=== PATIENT | female | born 1960 | race Caucasian/White ===

== ENCOUNTER 2025-06-14 15:00 | Emergency (ER) | payer BC, SELFPAY ==
--- NOTE | ~2025-06-14 | XR_ITS ---
XR ankle RT min 3V, XR foot RT min 3V 06/14/2025 15:40 Indication: Status post fall with swelling. Procedure: 3 views right ankle 3 views right foot Comparison: No prior studies for comparison. Findings: Comminuted Intra-articular fracture of the calcaneus with extension to the subtalar joint. Ankle mortise intact. Mild lateral soft tissue swelling. No foreign bodies. Impression: 1: Comminuted intra-articular fracture of the calcaneus with extension to the subtalar joint. Reviewed, dictated and finalized at location O. HAND ENGINEER Impression: 1: Comminuted intra-articular fracture of the calcaneus with extension to the s ubtalar joint. Impression: 1: Comminuted intra-articular fracture of the calcaneus with extension to the s ubtalar joint.
--- NOTE | ~2025-06-14 | CT_ITS ---
EXAMINATION: CT cervical spine wo con DATE: 06/14/2025 19:40 INDICATION: Neck pain after fall TECHNIQUE: Computed tomography (CT) of the cervical spine was performed without intravenous contrast. The dose-length product was 277 mGy-cm. COMPARISON: None FINDINGS: Straightening of cervical lordosis. There is disc narrowing at C5-6 and C6-7. Craniovertebral junction is normal odontoid process is normal. No evidence for perched facet. Spinous processes are normal. There is uncinate hypertrophy at C5-6 and C6-7. Lung apices are normal. No acute fracture or traumatic malalignment. IMPRESSION: 1. No acute abnormality of the cervical spine. Reviewed, dictated and finalized at location O. ICATIONS PROCESSOR
--- NOTE | ~2025-06-14 | CT_ITS ---
EXAMINATION: CT BRAIN W/O DATE: 06/14/2025 19:36 INDICATION: Status post fall. Head injury. TECHNIQUE: Computed tomography (CT) of the head was performed without intravenous contrast. The dose-length product was 605.33 mGy-cm. Automated exposure control and iterative reconstruction technique were employed. COMPARISON: No prior studies for comparison. FINDINGS: Normal brain parenchymal volume for age. Normal richardson-white differentiation. No acute intracranial hemorrhage, infarction, mass or mass effect. No ventriculomegaly or midline shift. Midline sagittal images demonstrate a normal corpus callosum, craniovertebral junction and sella turcica. Basilar cisterns are patent. Paranasal sinuses and mastoids are pneumatized. No depressed skull fractures. IMPRESSION: 1. No acute intracranial abnormality. Reviewed, dictated and finalized at location O. SFORMER STOCK CLERK
--- NOTE | ~2025-06-14 | CT_ITS ---
EXAMINATION: CT foot RT wo con DATE: 06/14/2025 21:47 INDICATION: Calcaneal fracture TECHNIQUE: Computed tomography (CT) of the right foot was performed without intravenous contrast. The dose-length product was 474.18 mGy-cm. Automated exposure control and iterative reconstruction technique were employed. COMPARISON: X-ray dated 06/14/2025 FINDINGS: There is a depressed type comminuted intra-articular fracture with decreased Boehler's angle. The distal tibia and fibula are unremarkable. The talus is within normal limits. There is a small bone island in the talus. No other fracture or traumatic malalignment. Moderate diffuse soft tissue swelling. IMPRESSION: 1. Depressed type comminuted intra-articular fracture of the calcaneus with decreased Boehler's angle. Reviewed, dictated and finalized at location O. NTION SERGEANT IMPRESSION: 1. Depressed type comminuted intra-articular fracture of the calcaneus with dec reased Boehler's angle.
--- NOTE | ~2025-06-14 | CT_ITS ---
EXAMINATION: CT chest abdomen pelvis w con DATE: 06/14/2025 20:04 RUG RENOVATOR INDICATION: Status post fall. TECHNIQUE: Computed tomography (CT) of the chest, abdomen, and pelvis was performed with intravenous contrast. The dose-length product was 775.92 mGy-cm. Automated exposure control and iterative reconstruction technique were employed. COMPARISON: None FINDINGS: CHEST CT: No significant pleural or pericardial effusion. No significant vascular abnormality. No thoracic lymphadenopathy. No focal airspace consolidation. No endobronchial lesions. No pneumothorax. There is 2 mm right upper lobe nodule, likely benign. There is a calcified granuloma in the left upper lobe. No focal airspace consolidation. ABDOMEN/PELVIS CT: Fatty infiltration of the liver. The spleen, pancreas, adrenal glands are unremarkable. There are small subcentimeter hypodensities of the kidneys, most likely benign cysts. Gallbladder is present. Nonobstructive bowel gas pattern. Fatty infiltration of the liver. The bowel pattern is nonobstructive. No significant vascular abnormality. No lymphadenopathy. Gallbladder is present. No acute osseous abnormality. IMPRESSION: 1. No acute abnormality of the chest, abdomen or pelvis. Reviewed, dictated and finalized at location O. RENOVATOR
--- NOTE | ~2025-06-14 | XR_ITS ---
XR pelvis 1-2V 06/14/2025 15:40 INDICATION: Status post fall. Pelvic pain. PROCEDURE: AP pelvis COMPARISON: No prior studies for comparison. FINDINGS: Fracture, dislocation or subluxation is not identified. The soft tissues appear within normal limits. No foreign bodies are identified. Study limited due to exclusion of the iliac crests. IMPRESSION: 1: NO ACUTE BONE OR JOINT ABNORMALITY IDENTIFIED. Reviewed, dictated and finalized at location O. CH TRANSLATOR
--- NOTE | ~2025-06-14 | XR_ITS ---
XR femur RT min 2V 06/14/2025 15:40 INDICATION: Right leg pain PROCEDURE: 2 views right femur COMPARISON: No prior studies for comparison. FINDINGS: Fracture, dislocation or subluxation is not identified. No significant soft tissue abnormality. The soft tissues appear within normal limits. No foreign bodies are identified. IMPRESSION: 1: NO ACUTE BONE OR JOINT ABNORMALITY IDENTIFIED. Reviewed, dictated and finalized at location O. RTMENT SUPERVISOR
--- OUTSIDE RECORDS SUMMARY | 2025-06-14 15:02 | XMS_ITS | Encounter Summary ---
Author Organization [facility] Address [address] [place] [address] Care Team Providers Care Furniture Removalist'S Assistant Name Role Phone Unavailable Primary Care Provider Unavailabl e Encounter Details Date Type Department Care Team (Late st Contact Info) Description 08/07/2020 Lab Requisition [facility] DermPath Lab [address], [place] [address] Fidelina Cordon DO [address] [facility] 3 [place] [address] Social History Tobacco Use Types Packs/Day Years Used Date Smoking Tobacco: Never Assessed Comments Unknown Sex and Gender Information Value Date Recorded Sex Assigned at Not on file Legal Sex Female 5:49 AM SECURITY DEVELOPER Gender Identity Not on file Sexual Orientation Not on file documented as of this encounter Plan of Treatment Not on file documented as of this encounter Procedures Procedure Name Priority Date/Time Associated Diagnosis Comments DERMATOPATHOLOGY Routine 08/06/2020 12:0 0 AM SECURITY DEVELOPER documented in this encounter Results * DERMATOPATHOLOGY (08/06/2020 12:00 AM SECURITY DEVELOPER) Case Report Dermatopathology Report Case: [id number] Authorizing Provider: Fidelina Cordon DO Collected: 08/06/2020 12:00 AM Ordering Location: [facility] Care DermPath Lab Received: 08/07/2020 11:44 AM Pathologist: Karthik Jiménez MD Specimen: Skin, right calf 11:53 AM SECURITY DEVELOPER DERMATOPATHOLOGY LABORATORY Final Diagnosis Specimen A. 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 11:53 AM [facility] DERMATOPATHOLOGY LABORATORY Gross Description Specimen A: Received is one formalin filled container labeled with the patient's name and designated right calf. The specimen consists of a shave biopsy measuring [id number]. Jar 0. 11:53 AM [facility] DERMATOPATHOLOGY LABORATORY Microscopic Description Specimen A. SKIN, right calf: This is a benign keratosis showing acanthosis with acantholysis in the lower layers of the epidermis. 11:53 AM [facility] DERMATOPATHOLOGY LABORATORY Disclaimer An external and internal positive and negative controls are appropriate for the histochemical, immunohistochemical and immunofluorescence stain(s) in this case (if any), except where stated explicitly. The performance characteristics of the stain(s) cited in this report were developed and its performance characteristic determined by the Dermatopathology Laboratory at [facility], directed by Dr. Lisy Jiménez. These tests need not be, and therefore are not, approved by the [place] Food and Drug Administration. The tests are used for clinical purposes. Billing Codes Specimen Charges Stain Charges 88507 1 11:53 AM [facility] DERMATOPATHOLOGY LABORATORY Embedded Images 11:53 AM [facility] DERMATOPATHOLOGY LABORATORY Pathology/Cytolog y TISSUE SPECIMEN FROM SKIN / Unknown 08/06/2020 08/07/2020 11:44 AM SECURITY DEVELOPER us Fidelina Cordon DO LAB - PATHOLOGY/CYTOLOGY ORDERABLES Final Result DERMATOPATHOLOGY LABORATORY [facility] - Department of Dermatology [address], [address] Floor [address] [phone] documented in this encounter Visit Diagnoses Not on filedocumented in this encounter
--- OUTSIDE RECORDS SUMMARY | 2025-06-14 15:02 | XMS_ITS | Clinical Summary ---
Author Organization [facility] Address [address] [place] [address] Care Team Providers Care Shoe Lining Fitter Name Role Phone Unavailable Primary Care Provider Unavailabl e Source Comments [facility],non-owned Affiliates and Associated Physician Practices is amultiple site organization consisting of ambulatory clinics and hospital sitesin [place], [place], [place] and [place]. This disclosure is being madepursuant to the Care Everywhere program and may not contain all information available regarding this patient. Last updated 18.[facility] Social History Tobacco Use Types Packs/Day Years Used Date Smoking Tobacco: Never Assessed Comments Unknown Sex and Gender Information Value Date Recorded Sex Assigned at Not on file Legal Sex Female 5:49 AM DIRECTOR TRADING Gender Identity Not on file Sexual Orientation Not on file Plan of Treatment Health Maintenance Due Date Last Done Comments COLOGUARD (AGES 45-75) - COL ON CA SCREENING 1961 COLON MONITORING 1961 COLONOSCOPY - COLON CA SCREENING 1961 CT COLONOGRAPHY - COLON CA SCREENING 1961 Colorectal Cancer Screening 1961 FIT - COLON CA SCREENING 1961 FLEX SIG - COLON CA SCREENING 1961 LIPID TESTING 1961 MAMMOGRAM 1961 HIV SCREENING 1976 HEPATITIS C SCREENING 10/15/1979 DTAP/TDAP/TD VACCINES (1 - Tdap) 1980 PNEUMOCOCCAL VACCINE 50+ (1 of 1 - PCV) 10/20/2011 ZOSTER VACCINE (1 of 2) 10/20/2011 DEPRESSION SCREENING 06/20/2024 COVID-19 VACCINE (1 - 2024-2 6 season) 2025 INFLUENZA VACCINE (#1) 2025 Respiratory Syncytial Virus (RSV) Vaccine Pt: or over 60 yrs (1 - 1-dose 75+ series) 2036 HEPATITIS B VACCINE Aged Out No longe r eligible based on patient's age to complete this topic HIB VACCINE Aged Out No longer eligi ble based on patient's age to complete this topic HPV VACCINE Aged Out No longer eligi ble based on patient's age to complete this topic MENINGOCOCCAL (Group B) VACC INE SHARED DECISION-MAKING Aged Out No longer eligibl e based on patient's age to complete this topic MENINGOCOCCAL GROUPS A/C/Y/W VACCINE Aged Out No longer eligible b ased on patient's age to complete this topic Insurance
--- OUTSIDE RECORDS SUMMARY | 2025-06-14 15:02 | XMS_ITS | Clinical Summary ---
Author Organization [facility] Address [address] [place] [address] Care Team Providers Care Telephone Service Representative Name Role Phone Lashell Campos MD Primary Care Provi joel Allergies No known active allergies Medications albuterol HFA (PROVENTIL HFA,VENTOLIN HFA,PROAIR HFA) 90 mcg/actuation inhalerIndicat ions:Chronic cough Inhale 2 puffs every 6 (six) hours as needed (cough) 1 each 4 03/14/20 25 026 Active inhalational spacing device (Aerochamber MV) spacerIndicati ons:Chronic cough Please use with albuterol every 6 hours as needed 1 each 03/14/20 25 Active alendronate (FOSAMAX) 10 mg tablet TAKE 1 TABLET (10 MG TOTAL) BY MOUTH DAILY BEFORE BREAKFAST TAKE IN THE MORNING WITH A FULL GLASS OF WATER, ON AN EMPTY STOMACH, AND DO NOT TAKE ANYTHING ELSE BY MOUTH OR LIE DOWN FOR THE NEXT 30 MIN. 90 tablet 3 06/10/20 25 Active alendronate (FOSAMAX) 10 mg tablet Take 1 tablet (10 mg total) by mouth daily before breakfast Take in the morning with a full glass of water, on an empty stomach, and do not take anything else by mouth or lie down for the next 30 min. 90 tablet 03/06/20 25 025 Discontinued Active Problems Problem Noted Date Diagnosed Date Well adult exam 03/14/2025 Overview (03/14/2025): Reviewed working on a heart healthy diet and activity to her level. Health Maintenance: Last PAP: s/p hysterectomy Last mammogram:04/12- Negative Last DEXA:07/13- osteoporosis Last colonoscopy: 12/10- repeat in 5 years Last Tdap: encouraged Last Shingrix:encouraged Last Flu: encouraged Last COVID: encouraged Test results: if you have not received communication about test results within 7 days of the test being performed, please contact the office. I strongly encourage myChart sign ups. It can facilitate communication flow. Please contact the office for instructions on signing up. Assessment & Plan (03/14/2025 8:46 AM CDT): Reviewed working on a heart healthy diet and activity to her level. Health Maintenance: Last PAP: s/p hysterectomy Last mammogram:04/12- Negative Last DEXA:07/13- osteoporosis Last colonoscopy: 12/10- repeat in 5 years Last Tdap: encouraged Last Shingrix:encouraged Last Flu: encouraged Last COVID: encouraged Test results: if you have not received communication about test results within 7 days of the test being performed, please contact the office. I strongly encourage myChart sign ups. It can facilitate communication flow. Please contact the office for instructions on signing up. Age-related osteoporosis wit hout current pathological fracture 03/14/2025 Assessment & Plan (03/14/2025 8:46 AM CDT): History of endometrial cancer 03/14/2025 Assessment & Plan (03/14/2025 8:46 AM CDT): Overweight (BMI 25.0-29.9) 12/14/2023 Assessment & Plan (03/14/2025 8:46 AM CDT): Chronic, slight progression BMI Follow-up includes: education provided. Assessment & Plan (12/14/2023 1:16 PM CDT): BMI Follow-up includes: education provided. Mediastinal lymphadenopathy 04/29/2016 Assessment & Plan (03/14/2025 8:46 AM CDT): Orders: CT Chest WO Contrast; Future Encounters Date Type Department Care Team Description 03/22/2025 Results Follow-Up [facility] Family Medicine [address] [phone] Lashell Campos MD CBC with auto differential, Comprehensive metabolic panel, Lipid panel, Thyroid Function [place] from Last 3 Months Immunizations Immunization Administration Dates Next Due Influenza, Unspecified 02/18/2025(Deferr ed: Patient decision),03/20/2024(Deferred: Patient decision),03/20/2023(Deferred: Patient Refused),03/20/2022(Deferred: Patient decision),03/20/2021(Deferred: Patient decision) Tdap 03/14/2025 Surgical History Surgery Date Site/Laterality Comments TOTAL ABDOMINAL HYSTERECTOMY age 46 LASIK 1998 CYSTECTOMY ovarian Medical History Medical History Date Comments Malignant neoplasm of uterus (HCC) Cancer, uterine Endometrial cancer 03/2007 Osteoporosis 06/29/23 Family History Medical History Relation Name Comments Breast cancer Father's Sister Breast cancer Mother Ely Holbrook Cancer Mother Ely Holbrook Breast cancer Sister 1 Endometrial cancer Sister 1 Uterine cancer Sister 1 Cancer, uteri ne; Cancer Sister 2 Marisol Holbrook Ovarian cancer Neg Hx Thyroid cancer Neg Hx Relation Name Status Comments Father Father's Sister Mother Ely Holbrook Other Sister 1 Sister 2 Marisol Holbrook Social History Tobacco Use Types Packs/Day Years Used Date Smoking Tobacco: Never Smokeless Tobacco: Never Tobacco Cessation:Counseling Given: Not Answered Alcohol Use Standard Drinks/Week Comments Yes 0 (1 standard drink = 0.6 oz pur e alcohol) PHQ-2 Answer Date Recorded PHQ-2 Total Score (If total score is 3 or more points, staff should administer the PHQ-9) 0 03/14/2025 PHQ-9 Answer Date Recorded PHQ-9 Total Score 0 03/14/2025 AUDIT-C Answer Date Recorded Q1: How often do you have a drink containing alc ohol? Monthly or less 03/14/2025 Q2: How many drinks containi ng alcohol do you have on a typical day when you are drinking? 1 or 2 03/14/2025 Q3: How often do you have si x or more drinks on one occasion? Never 03/14/2025 Comments No Sex and Gender Information Value Date Recorded Sex Assigned at Not on file Legal Sex Female 4:16 AM CRITICAL CARE SPECIALIST Gender Identity Not on file Sexual Orientation Not on file Obstetrics History Para Term AB IAB SAB Ectopic Multiple Livin g Live Births 3 3 3 3 3 Date Outcome GA Total Labor Labor/2nd/3rd Weight Sex Type Anes PTL Zeinab A1 A5 Name Clin Term Vag-S pont Living Term Vag-S pont Living Term Vag-S pont Living Last Filed Vital Signs Vital Sign Reading Time Taken Comments Blood Pressure 120/70 03/14/2025 8:16 AM CDT Pulse 58 03/14/2025 8:16 AM CDT Temperature 36.1 C (97 F) 03/14/2025 8:16 AM CDT Respiratory Rate 16 03/14/2025 8:16 AM CDT Oxygen Saturation 98% 03/14/2025 8:16 AM CDT Inhaled Oxygen Concentration - - Weight 81.3 kg (179 lb 3.2 oz) 03/14/2025 8:16 A M CDT Height 168.9 cm (5' 6.5) 03/14/2025 8:16 AM CDT Body Mass Index 28.49 03/14/2025 8:16 AM CDT Plan of Treatment Health Maintenance Due Date Last Done Comments Hepatitis B Screening 10/20/1979 Zoster Vaccine (1 of 2) 10/20/2011 Covid-19 Vaccine (3 - season) 2025 09/23/2020, 08/31/2020 Influenza Vaccine (#1) 2025 Breast Cancer Screening-Mammogram 04/18/2025 04/18/2024, 01/20/2023, 05/03/2019 Depression Screening 03/14/2026 03/14/2025, 03/14/2025, 12/14/2023, Additional history exists Regular Well Visit/Exam 18-64 03/14/2026 03/14/2025, 02/15/2023 Colon Cancer Screening-Colonoscopy 12/01/2027 11/30/2022 DTaP/Tdap/Td Vaccine (2 - Td or Tdap) 03/14/2035 03/14/2025 Hepatitis C Screening Completed 11/29/2022 Colon Cancer Screening-CT Colonography Discontinued 11/30/2022 Colon Cancer Screening-DNA Stool Discontinued 11/30/2022 Colon Cancer Screening-FIT Discontinued 11/30/2022 Colon Cancer Screening-Sigmoidoscopy Discontinued 11/30/2022 Pneumococcal vaccine <65 Aged Out No longer eligible based on patient's age to complete this topic Procedures Procedure Name Priority Date/Time Associated Diagnosis Comments THYROID FUNCTION CASCADE Routine 03/19/2025 12:42 PM CDT Screening for thyroid disorder LIPID PANEL Routine 03/19/2025 12:42 PM CDT Screening, lipid COMPREHENSIVE METABOLIC PANEL Routine 03/19/2025 12:42 PM CDT Screening for diabetes mellitus CBC WITH AUTO DIFFERENTIAL Routine 03/19/2025 12:42 PM CDT Screening for deficiency anemia SCREENING MAMMOGRAM BILATERAL W OCTAVIANO Schedule Routine, Read Routine (OP Routine) 04/18/2024 2:30 PM CDT Screening mammogram, encounter for COLONOSCOPY Routine 11/30/2022 HEPATITIS C ANTIBODY Routine 11/29/2022 8:45 AM CDT Need for hepatitis C screening test from Last 3 Months or Most Recently Relevant to Health Maintenance Results * Thyroid Function [place] (03/19/2025 12:42 PM CDT) TSH 4.44 0.40 - 4.50 mIU/L [facility] Blood 03/19/2025 12:4 2 PM CDT 03/19/2025 12:44 PM CDT Narrative [facility] - 03/20/2025 1:33 AM CDT FASTING:YES FASTING: YES us Lashell Campos MD LAB BLOOD ORDERABLE S Final Result [facility] [address] [place] [address] * CBC with auto differential (03/19/2025 12:42 PM CDT) WBC 5.5 3.8 - 10.8 Thousand/u L [facility] RBC, POC 4.56 3.80 - 5.10 Million/uL [facility] Hgb 13.6 11.7 - 15.5 g/dL [facility] Hct 41.7 35.0 - 45.0 % [facility] MCV 91.4 80.0 - 100.0 fL [facility] MCH 29.8 27.0 - 33.0 pg [facility] MCHC 32.6 32.0 - 36.0 g/dL [facility] Comment: For adults, a slight decrease in the calculated MCHC value (in the range of 30 to 32 g/dL) is most likely not clinically significant; however, it should be interpreted with caution in correlation with other red cell parameters and the patient's clinical condition. Rdw 12.6 11.0 - 15.0 % [facility] Platelets 215 140 - 400 Thousand/u L [facility] MPV 11.1 7.5 - 12.5 fL [facility] Neutrophils, abs 3,674 1,500 - 7,800 cells/uL [facility] Lymphocytes, abs 1,348 850 - 3,900 cells/uL [facility] Monocyte abs 341 200 - 950 cells/uL [facility] Eosinophils, abs 88 15 - 500 cells/uL [facility] Basophils, abs 50 0 - 200 cells/uL [facility] Neutrophils 66.8 % [facility] Lymphocyte pct 24.5 % [facility] Monocytes 6.2 % [facility] Eosinophils 1.6 % [facility] Basophils 0.9 % [facility] Blood 03/19/2025 12:4 2 PM CDT 03/19/2025 12:44 PM CDT Narrative [facility] - 03/20/2025 1:33 AM CDT FASTING:YES FASTING: YES us Lashell Campos MD LAB BLOOD ORDERABLE S Final Result [facility] [address] [place] [address] * (ABNORMAL) Lipid panel (03/19/2025 12:42 PM CDT) Pathologist [facility] Cholesterol 217(H) <200 mg/dL [facility] HDL 63 > OR = 50 mg/dL [facility] Triglycerides 75 <150 mg/dL [facility] LDL 137(H) mg/dL (calc) [facility] Comment: Reference range: <100 Desirable range <100 mg/dL for primary prevention; <70 mg/dL for patients with CHD or diabetic patients with > or = 2 CHD risk factors. LDL-C is now calculated using the Jessica calculation, which is a validated novel method providing better accuracy than the Friedewald equation in the estimation of LDL-C. Jorge SS et al. JANETT. 2013;310(32): 7371-5560 (http://education.[employer]/faq/VAV481) Chol/HDL ratio 3.4 <5.0 (calc) [facility] Non-HDL, (LDL+VLDL) 154(H) <130 mg/dL (calc) [facility] Comment: For patients with diabetes plus 1 major ASCVD risk factor, treating to a non-HDL-C goal of <100 mg/dL (LDL-C of <70 mg/dL) is considered a therapeutic option. Blood 03/19/2025 12:4 2 PM CDT 03/19/2025 12:44 PM CDT Narrative [facility] - 03/20/2025 1:33 AM CDT FASTING:YES FASTING: YES us Lashell Campos MD LAB BLOOD ORDERABLE S Final Result [facility] [address] [place] [address] * Comprehensive metabolic panel (03/19/2025 12:42 PM CDT) Pathologist [facility] Glucose 87 65 - 99 mg/dL [facility] Comment: Fasting reference interval BUN 20 7 - 25 mg/dL [facility] Creatinine 0.78 0.50 - 1.05 mg/dL [facility] eGFR 85 > OR = 60 mL/min/1.7 3m2 [facility] BUN/creat ratio SEE NOTE: 6 - 22 (calc) [facility] Comment: Not Reported: BUN and Creatinine are within reference range. Sodium 141 135 - 146 mmol/L [facility] Potassium, pl 4.0 3.5 - 5.3 mmol/L [facility] Chloride 103 98 - 110 mmol/L [facility] CO2 30 20 - 32 mmol/L [facility] Calcium 9.2 8.6 - 10.4 mg/dL [facility] Protein, sr 6.9 6.1 - 8.1 g/dL [facility] Albumin 4.3 3.6 - 5.1 g/dL [facility] GLOBULIN 2.6 1.9 - 3.7 g/dL (calc) [facility] Alb/glob ratio 1.7 1.0 - 2.5 (calc) [facility] Bilirubin, total 0.5 0.2 - 1.2 mg/dL [facility] Alk phos 81 37 - 153 U/L [facility] AST 21 10 - 35 U/L [facility] ALT (SGPT) 21 6 - 29 U/L [facility] Blood 03/19/2025 12:4 2 PM CDT 03/19/2025 12:44 PM CDT Narrative [facility] - 03/20/2025 1:33 AM CDT FASTING:YES FASTING: YES us Lashell Campos MD LAB BLOOD ORDERABLE S Final Result [facility] [address] [place] [address] * Screening Mammogram Bilateral W Octaviano (04/18/2024 2:30 PM CDT) Anatomical Region Laterality Modality Breast Bilateral Mammography Impressions 04/18/2024 2:52 PM CDT BI-RADS ATLAS category (overall): 1 - Negative There is no mammographic evidence of malignancy. A 1 year screening mammogram is recommended. The patient has been or will be contacted. We recommend annual screening mammography for women at average risk of breast cancer beginning at age 40, based on guidelines of the [employer] (ACR Practice Parameter for the Performance of Screening and Diagnostic Mammography) and [employer]. For women with and elevated risk of breast cancer, please refer to the ACR Practice Parameter for specific screening recommendations. The patient will be entered into a reminder system with a target due date of 1 year for her next screening exam. Narrative 04/18/2024 2:52 PM CDT Screening Mammogram Bilateral W Octaviano: 04/18/24 The study was acquired using full field digital technology and interpreted from soft copy. 2D digital mammographic views, as well as 3D digital tomosynthesis were performed in the CC and MLO projections. CLINICAL: Screening mammogram, encounter for. Medical history includes endometrial cancer. History of breast cancer in Mother, Sister, Father's Sister. COMPARISONS: 01/20/2023 Screening Mammogram Bilateral W Octaviano 05/03/2019 Screening Mammogram Bilateral W Octaviano BREAST TISSUE: There are scattered areas of fibroglandular density. FINDINGS: No suspicious masses, suspicious calcifications, or other suspicious findings are seen within either breast. There has been no suspicious change. us Self Screening Mammogram IMG MAMMO PROCEDURES Fi nal Result * Colonoscopy (11/30/2022) Anatomical Region Laterality Modality Other Historical Provider MD ENDOSCOPY PROCEDURES Awilda l Result * Hepatitis C antibody (11/29/2022 8:45 AM CDT) Hep C Ab NON-REACTI VE NON-REACT MARISOL [facility] SIGNAL TO CUT-OFF 0.05 <1.00 [facility] Comment: HCV antibody was non-reactive. There is no laboratory evidence of HCV infection. In most cases, no further action is required. However, if recent HCV exposure is suspected, a test for HCV RNA (test code 14780) is suggested. For additional information please refer to http://education.[employer]/faq/EAP90b8 (This link is being provided for informational/ educational purposes only.) Blood 11/29/2022 8:45 AM CDT 11/29/2022 8:46 AM CDT Narrative [facility] - 12/01/2022 10:24 AM CDT FASTING:YES FASTING: YES us Lashell Campos MD LAB MICROBIOLOGY - GENERAL ORDERABLES Final Result [facility] [id number] [address] from Last 3 Months or Most Recently Relevant to Health Maintenance Insurance [facility] [employer] Care Teams Telephone Service Representative Relationship Specialty Start Date End Date Lashell Campos MD [address] [place] [address] PCP - General Family Medicine 11/16/22
[2025-06-14 15:06] VITALS: BP 147/87; PULSE 66; RESP 16; TEMP 36.7; O2SAT 100
--- NOTE | 2025-06-14 18:18 | ED_ITS ---
HPI - Fall General Chief Complaint: Fall Stated Complaint: FELL FROM 6FT LADDER Time Seen by Provider: 06/14/25 17:57 Source: patient Mode of arrival: wheelchair Limitations: no limitations History of Present Illness HPI Narrative: This is a 64 year old female that presents to the ER for a fall off a ladder. Fell off the second step from the top. Landed on her right foot first and then fell and hit her head. She did not lose consciousness. Complaints of pain from her right hip down to her foot. Denies vomiting, focal numbness or weakness. Related Data Allergies Allergy/AdvReac Type Severity Reaction Status Date / Time No Known Allergies Allergy Unverified 04/22/15 18:43 Review of Systems 2 Review of Systems: All systems reviewed & are unremarkable except as noted in HPI and below Exam 2 Narrative: GENERAL: Well-appearing, well-nourished, and in no acute distress. HEAD: Normocephalic, atraumatic. EYES: PERRLA and EOMI. ENT: Nares clear, no rhinorrhea or epistaxis. Mucous membranes moist. Oropharynx without tonsillar hypertrophy exudate or other lesions. Bilateral TMs pearly richardson non-bulging NECK: Supple. No adenopathy or masses. CHEST: Clear to auscultation. No respiratory distress. No wheezes rales or rhonchi HEART: Regular rate and rhythm. No murmur heard. Normal peripheral pulses. ABDOMEN: Soft, nontender, nondistended, normal active bowel sounds. EXTREMITIES: Normal range of motion. Moderate edema and bruising about the right foot. Normal DP pulse. SKIN: Warm, dry, no rash. NEURO: No focal deficits. Alert and oriented x3. Cranial nerves 2-12 grossly intact PSYCH: Normal mood and affect Course Consultations Orthopedics: I have discussed the care of this patient with the following provider: Dr. Caro Vital Signs Vital signs: Vital Signs Temperature 98.1 F 06/14/25 15:06 Pulse Rate 66 06/14/25 15:06 Respiratory Rate 16 06/14/25 15:06 Blood Pressure 147/87 H 06/14/25 15:06 Pulse Oximetry 100 06/14/25 15:06 Oxygen Delivery Room Air 06/14/25 15:06 Temperature 98.1 F 06/14/25 15:06 Pulse Rate 66 06/14/25 15:06 Respiratory Rate 16 06/14/25 15:06 Blood Pressure 147/87 H 06/14/25 15:06 Pulse Oximetry 100 06/14/25 15:06 Oxygen Delivery Room Air 06/14/25 15:06 Procedures Orthopedic Splinting/Casting Injury #1: Splinting/Casting Date: 06/14/25 Side: right Lower Extremity Injury Location: foot Lower Extremity Immobilizer: posterior splint OCL: short leg Pre-Procedure Neuro Vascular Exam: normal Post-Procedure Neuro Vascular Exam: normal Other Orthopedic Equipment: crutches (patient has crutches) [facility] Narrative Medical decision making narrative: Patient presents to the emergency department after a fall off a ladder today with right leg pain. She is neurovascularly intact. CT brain, cervical spine, chest/abdomen/pelvis without acute posttraumatic findings. Right foot x-ray showing comminuted intra-articular fracture of the calcaneus. Spoke with Dr. Caro. Will obtain CT scan of the foot. Posterior splint, follow-up in clinic Differential Diagnosis Differential Diagnosis: Calcaneal fracture, spine fracture, intra-abdominal trauma, intrathoracic trauma, subdural hemorrhage, concussion Lab Data [facility] Lab Attestation statement: I personally reviewed the patient's lab results. 06/14/25 19:07 06/14/25 19:07 Labs: Lab Results 06/14/25 Range/Units 19:07 WBC 9.1 (4.5-10.0) K/mm3 RBC 4.73 (4.2-5.4) M/mm3 Hgb 13.8 (12.0-15.0) g/dL Hct 41.8 (37.0-47.0) % MCV 88.4 (80-100) fl MCH 29.2 (26-34) pg MCHC 33.0 (32-36) g/dl RDW 12.5 (11.5-14.5) % Plt Count 237 (150-375) k/mm3 MPV 10.5 H (7.4-10.4) fl Immature Gran % (Auto) 0.3 (0-0.5) % Neut % (Auto) 80.3 H (45.5-73.1) % Lymph % (Auto) 13.8 L (18.3-44.2) % [place] % (Auto) 4.6 (2.6-8.5) % Eos % (Auto) 0.6 (0-4.4) % Baso % (Auto) 0.4 (0.2-1.2) % Lymph # (Auto) 1.25 (0.9-3.2) K/mm3 [place] # (Auto) 0.4 (0.1-0.6) K/mm3 Eos # (Auto) 0.1 (0-0.3) K/mm3 Baso # (Auto) 0.0 (0.0-0.1) K/mm3 Abs Immat Gran (auto) 0.03 (0.00-0.031) K/mm3 Absolute Neuts (auto) 7.3 H (1.3-6.7) K/mm3 Absolute Nucleated RBC 0.000 (0.0-0.012) K/mm3 Nucleated RBC % 0.0 (0.0-0.2) % Sodium 140 (137-145) mmol/L Potassium 3.5 (3.4-5.0) mmol/L Chloride 103 (98-107) mmol/L Carbon Dioxide 30 (22-30) mmol/L Anion Gap 7 (4-12) mmol/L BUN 21 H (7-17) mg/dL Creatinine 0.89 (0.7-1.0) mg/dL Estim Creat Clear Calc 55 ml/min Estimated GFR > 60 (59 - ) Glucose 115 H (65-110) mg/dL Calcium 9.7 (8.4-10.2) mg/dL Total Bilirubin 0.6 (0.2-1.3) mg/dL AST 28 (14-36) U/L ALT 22 (6-35) U/L Alkaline Phosphatase 85 (38-126) U/L Total Protein 8.3 H (6.3-8.2) g/dL Albumin 4.8 (3.5-5.1) g/dL Imaging Data Radiologist's impression: ITS Impressions Ankle X-Ray 06/14/25 15:43 Impression: 1: Comminuted intra-articular fracture of the calcaneus with extension to the subtalar joint. Foot X-Ray 06/14/25 15:43 Impression: 1: Comminuted intra-articular fracture of the calcaneus with extension to the subtalar joint. Femur X-Ray 06/14/25 15:44 IMPRESSION: 1: NO ACUTE BONE OR JOINT ABNORMALITY IDENTIFIED. Pelvis X-Ray 06/14/25 15:45 IMPRESSION: 1: NO ACUTE BONE OR JOINT ABNORMALITY IDENTIFIED. Head CT 06/14/25 19:47 IMPRESSION: 1. No acute intracranial abnormality. Cervical Spine CT 06/14/25 19:50 IMPRESSION: 1. No acute abnormality of the cervical spine. Chest/Abdomen/Pelvis CT 06/14/25 20:04 IMPRESSION: 1. No acute abnormality of the chest, abdomen or pelvis. Critical Care Time Critical Care Time Critical Care Time: No Discharge Plan Discharge Clinical Impression: Calcaneal fracture Qualifiers: Encounter type: initial encounter Calcaneus location: body Fracture type: c losed Fracture alignment: displaced Laterality: right Qualified Code(s): S 92.011A - Displaced fracture of body of right calcaneus, initial encounter for closed fracture Patient Disposition: Home Condition: Stable Instructions: Foot Fracture in Adults (ED) Additional Instructions: Return to the ER if you experience fever, redness and swelling of your extremity, numbness or any other symptoms that are concerning to you Wear splint and use crutches. No weight on the affected leg. Ice and elevate extremity. Pain medication as needed and directed. Follow up with orthopedics for further care. Patient Language: Portuguese Prescriptions: New hydrocodone-acetaminophen 5-325 mg tablet 1 tablet PO Q6H PRN (Reason: pain) Qty: 20 0RF Follow-up/Referrals: PHYSICIAN NOT ON STAFF,NONSTAFF [Primary Care Provider] Juan Carlos Caro MD [Physician, Orthopedics]
--- OUTSIDE RECORDS SUMMARY | 2025-06-14 18:25 | XMS_ITS | Clinical Summary ---
Author Organization [facility] Address [address] [place] [address] Care Team Providers Care Charging Car Operator Name Role Phone Lashell Campos MD Primary [...] Department Care Team Description 03/22/2025 Results Follow-Up [facility] [address] [phone] Lashell Campos MD CBC with auto differential, Comprehensive metabolic panel, Lipid panel, Thyroid Function [place] from Last 3 Months Immunizations Immunization Administration [...] on file Legal Sex Female 4:16 AM DOCUMENTATION CLERK Gender Identity Not on file Sexual Orientation [...] to Health Maintenance Results * Thyroid Function [place] (03/19/2025 12:42 PM CDT) TSH 4.44 0.40 - 4.50 mIU/L [facility] Blood 03/19/2025 12:4 2 PM CDT 03/19/2025 12:44 PM CDT Narrative [facility] - 03/20/2025 1:33 AM CDT FASTING:YES FASTING: YES us Lashell Campos MD LAB BLOOD ORDERABLE S Final Result [facility] [address] [place] [address] * CBC with auto differential (03/19/2025 12:42 PM CDT) WBC 5.5 3.8 - 10.8 Thousand/u L [facility] RBC, POC 4.56 3.80 - 5.10 Million/uL [facility] Hgb 13.6 11.7 - 15.5 g/dL [facility] Hct 41.7 35.0 - 45.0 % [facility] MCV 91.4 80.0 - 100.0 fL [facility] MCH 29.8 27.0 - 33.0 pg [facility] MCHC 32.6 32.0 - 36.0 g/dL [facility] Comment: For adults, a slight decrease in the calculated MCHC value (in the range of 30 to 32 g/dL) is most likely not clinically significant; however, it should be interpreted with caution in correlation with other red cell parameters and the patient's clinical condition. Rdw 12.6 11.0 - 15.0 % [facility] Platelets 215 140 - 400 Thousand/u L [facility] MPV 11.1 7.5 - 12.5 fL [facility] Neutrophils, abs 3,674 1,500 - 7,800 cells/uL [facility] Lymphocytes, abs 1,348 850 - 3,900 cells/uL [facility] Monocyte abs 341 200 - 950 cells/uL [facility] Eosinophils, abs 88 15 - 500 cells/uL [facility] Basophils, abs 50 0 - 200 cells/uL [facility] Neutrophils 66.8 % [facility] Lymphocyte pct 24.5 % No [facility] Monocytes 6.2 % No [facility] Eosinophils 1.6 % No [facility] Basophils 0.9 % [facility] Blood 03/19/2025 12:4 2 PM CDT 03/19/2025 12:44 PM CDT Narrative [facility] - 03/20/2025 1:33 AM CDT FASTING:YES FASTING: YES us Lashell Campos MD LAB BLOOD ORDERABLE S Final Result [facility] [address] [place] [address] * (ABNORMAL) Lipid panel (03/19/2025 12:42 PM CDT) Pathologist [facility] Cholesterol 217(H) <200 mg/dL [facility] HDL 63 > OR = 50 mg/dL [facility] Triglycerides 75 <150 mg/dL [facility] LDL 137(H) mg/dL (calc) [facility] Comment: Reference range: <100 Desirable range <100 mg/dL for primary prevention; <70 mg/dL for patients with CHD or diabetic patients with > or = 2 CHD risk factors. LDL-C is now calculated using the Jessica calculation, which is a validated novel method providing better accuracy than the Friedewald equation in the estimation of LDL-C. Jorge SS et al. JANETT. 2013;310(28): 9454-4700 (http://education.Frontier pte/faq/WYE214) Chol/HDL ratio 3.4 <5.0 (calc) [facility] Non-HDL, (LDL+VLDL) 154(H) <130 mg/dL (calc) [facility] Comment: For patients with diabetes plus 1 major ASCVD risk factor, treating to a non-HDL-C goal of <100 mg/dL (LDL-C of <70 mg/dL) is considered a therapeutic option. Blood 03/19/2025 12:4 2 PM CDT 03/19/2025 12:44 PM CDT Narrative [facility] - 03/20/2025 1:33 AM CDT FASTING:YES FASTING: YES us Lashell Campos MD LAB BLOOD ORDERABLE S Final Result [facility] [address] [place] [address] * Comprehensive metabolic panel (03/19/2025 12:42 PM CDT) Pathologist [facility] Glucose 87 65 - 99 mg/dL [facility] Comment: Fasting reference interval BUN 20 7 - 25 mg/dL [facility] Creatinine 0.78 0.50 - 1.05 mg/dL [facility] eGFR 85 > OR = 60 mL/min/1.7 3m2 [facility] BUN/creat ratio SEE NOTE: 6 - 22 (calc) [facility] Comment: Not Reported: BUN and Creatinine [...] ratio 1.7 1.0 - 2.5 (calc) [facility] Bilirubin, total 0.5 0.2 - 1.2 mg/dL [facility] Alk phos 81 37 - 153 U/L [facility] AST 21 10 - 35 U/L [facility] ALT (SGPT) 21 6 - 29 U/L [facility] Blood 03/19/2025 12:4 2 PM CDT 03/19/2025 12:44 PM CDT Narrative [facility] - 03/20/2025 1:33 AM CDT FASTING:YES FASTING: YES us Lashell Campos MD LAB BLOOD ORDERABLE S Final Result [facility] [address] [place] [address] * Screening Mammogram Bilateral W Octaviano (04/18/2024 [...] age 40, based on guidelines of the [employer] [employer] (ACR Practice Parameter for the Performance of Screening and Diagnostic Mammography) and [place] [employer]. For women [...] a test for HCV RNA (test code 82534) is suggested. For additional information please refer to http://education.Vinylmint/faq/JYV57r2 (This link is being provided for informational/ educational purposes only.) Blood 11/29/2022 8:45 AM CDT 11/29/2022 8:46 AM CDT Narrative [facility] - 12/01/2022 10:24 AM CDT FASTING:YES FASTING: YES us Lashell Campos MD LAB MICROBIOLOGY - GENERAL ORDERABLES Final Result [facility] [id number] [phone] from Last 3 Months or Most Recently Relevant to Health Maintenance Insurance [facility] Care Teams Charging Car Operator Relationship Specialty Start Date End Date Lashell Campos MD [address] [place] [address] PCP - General Family Medicine 11/16/22
--- OUTSIDE RECORDS SUMMARY | 2025-06-14 18:25 | XMS_ITS | Clinical Summary ---
Author Organization [facility] Address [address] [place] [address] Care Team Providers Care Transitions Manager Rn Name Role Phone Unavailable Primary Care Provider Unavailabl e Source Comments [facility],non-owned Affiliates and Associated Physician Practices is amultiple site organization consisting of ambulatory clinics and hospital sitesin [place], [place], [place] and [place]. This disclosure is being madepursuant to the Care Everywhere program and may not contain all information available regarding this patient. Last updated 18.[facility] [employer] Social History Tobacco Use Types Packs/Day Years Used Date Smoking Tobacco: Never Assessed Comments Unknown Sex and Gender Information Value Date Recorded Sex Assigned at Not on file Legal Sex Female 5:49 AM LABORATORY MANAGER Gender Identity Not on file Sexual Orientation [...]
--- OUTSIDE RECORDS SUMMARY | 2025-06-14 18:25 | XMS_ITS | Encounter Summary ---
Author Organization [facility] Address [address] [place] [address] Care Team Providers Care Multi Craft Maintenance Technician Name Role Phone Unavailable Primary Care Provider Unavailabl e Encounter Details Date Type Department Care Team (Late st Contact Info) Description 08/07/2020 Lab Requisition [facility] DermPath Lab [address] [place] [address] Fidelina Cordon DO [address] [facility] [address] [place] [address] Social History Tobacco Use Types Packs/Day Years Used Date Smoking Tobacco: Never Assessed Comments Unknown Sex and Gender Information Value Date Recorded Sex Assigned at Not on file Legal Sex Female 5:49 AM AIRCRAFT BODY REPAIRER Gender Identity Not on file Sexual Orientation Not on file documented as of this encounter Plan of Treatment Not on file documented as of this encounter Procedures Procedure Name Priority Date/Time Associated Diagnosis Comments DERMATOPATHOLOGY Routine 08/06/2020 12:0 0 AM AIRCRAFT BODY REPAIRER documented in this encounter Results * DERMATOPATHOLOGY (08/06/2020 12:00 AM AIRCRAFT BODY REPAIRER) Case Report Dermatopathology Report Case: [id number] Authorizing Provider: Fidelina Cordon DO Collected: 08/06/2020 12:00 AM Ordering Location: [facility] Care DermPath Lab Received: 08/07/2020 11:44 AM Pathologist: Karthik Jiménez MD Specimen: Skin, right calf 11:53 AM AIRCRAFT BODY REPAIRER DERMATOPATHOLOGY LABORATORY Final Diagnosis Specimen A. 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 11:53 AM [facility] DERMATOPATHOLOGY LABORATORY Gross Description Specimen A: Received is one formalin filled container labeled with the patient's name and designated right calf. The specimen consists of a shave biopsy measuring [id number]. Jar 0. 11:53 AM [facility] DERMATOPATHOLOGY LABORATORY Microscopic Description Specimen A. SKIN, right calf: This is a benign keratosis showing acanthosis with acantholysis in the lower layers of the epidermis. 11:53 AM [facility] DERMATOPATHOLOGY LABORATORY Disclaimer An external and internal positive and negative controls are appropriate for the histochemical, immunohistochemical and immunofluorescence stain(s) in this case (if any), except where stated explicitly. The performance characteristics of the stain(s) cited in this report were developed and its performance characteristic determined by the Dermatopathology Laboratory at [facility], directed by Dr. Lisy Jiménez. These tests need not be, and therefore are not, approved by the [place] Food and Drug Administration. The tests are used for clinical purposes. Billing Codes Specimen Charges Stain Charges 22744 1 11:53 AM [facility] DERMATOPATHOLOGY LABORATORY Embedded Images 11:53 AM [facility] DERMATOPATHOLOGY LABORATORY Pathology/Cytolog y TISSUE SPECIMEN FROM SKIN / Unknown 08/06/2020 08/07/2020 11:44 AM AIRCRAFT BODY REPAIRER us Fidelina Cordon DO LAB - PATHOLOGY/CYTOLOGY ORDERABLES Final Result DERMATOPATHOLOGY LABORATORY [facility] - Department of Dermatology [address], [address] [phone] documented in this encounter Visit Diagnoses Not on filedocumented in this encounter
[2025-06-14] MEDS: ONDANSETRON INJ 4 MG/2 ML VIAL IV PUSH (19:09)
[2025-06-14] MEDS: MORPHINE SULFATE (*CRX) 4 MG/ML INJ IV PUSH (19:09)
[2025-06-14 19:22] LABS: Hematocrit 41.8 % (37.0-47.0); Hemoglobin 13.8 g/dL (12.0-15.0); Immature Granulocyte Percent A 0.3 % (0-0.5); Lymphocytes Absolute Auto 1.25 K/mm3 (0.9-3.2); Mean Corpuscular HGB Conc 33.0 g/dl (32-36); Mean Corpuscular Hemoglobin 29.2 pg (26-34); Mean Corpuscular Volume 88.4 fl (80-100); Nucleated Red Blood Cells Absolute Auto 0.000 K/mm3 (0.0-0.012); Nucleated Red Blood Cells Perc 0.0 % (0.0-0.2); Platelet Count Result 237 k/mm3 (150-375); Red Blood Count 4.73 M/mm3 (4.2-5.4); White Blood Count 9.1 K/mm3 (4.5-10.0)
[2025-06-14 19:31] LABS: Alanine Aminotransferase 22 U/L (6-35); Albumin Level 4.8 g/dL (3.5-5.1); Alkaline Phosphatase 85 U/L (38-126); Anion Gap 7 mmol/L (4-12); Aspartate Amino Transferase 28 U/L (14-36); Bilirubin,Total 0.6 mg/dL (0.2-1.3); Blood Urea Nitrogen 21 mg/dL (7-17); Calcium 9.7 mg/dL (8.4-10.2); Carbon Dioxide 30 mmol/L (22-30); Chloride 103 mmol/L (98-107); Estimated CRCL calculation 55 ml/min; Estimated Glomerular Filt Rate > 60; Glucose 115 mg/dL (65-110); Potassium 3.5 mmol/L (3.4-5.0); Sodium 140 mmol/L (137-145); Total Protein 8.3 g/dL (6.3-8.2)
[2025-06-14] MEDS: HYDROcodone/acetaminophen (*CRX) 5-325 MG TABLET 1 TAB PO (21:14)
--- NOTE | 2025-06-14 22:47 | PC.NURSE ---
left lower splint placed as ordered.
== END 2025-06-14 22:50 | disposition home or self-care (01) ==
PROVIDERS: Emergency Provider Physician Assistant
DX: S92.061A Displaced intraarticular fracture of right calcaneus, initial encounter for closed fracture (principal); W11.XXXA Fall on and from ladder, initial encounter
CPT/HCPCS: 29515; 36415; 70450; 71260; 72125; 72170; 73552; 73610; 73630; 73700; 74177; 80053; 85025; 96374; 96375; 99284; A9270; J2270; J2405; Q9967